=== PATIENT | female | born 1965 | race Caucasian/White ===

== ENCOUNTER 2022-03-10 06:17 | Observation (INO) ==
[~2022-03-10 06:17] MED LIST: Famotidine 20 MG/2 ML VIAL IVP ONE; Ringers Solution, Lactated 1,000 ML IVC ONE
[2022-03-10] MEDS ORDERED: Acetaminophen IV 1,000 MG/100 ML BAG IVPB ONE (06:30)
[2022-03-10] MEDS ORDERED: CeFAZolin Syr 2,000MG/20 ML 2,000 MG/20 ML SYRINGE IVPB ONE (06:46)
[2022-03-10] MEDS ORDERED: Ondansetron ODT 4 MG TAB.RAPDIS SL ONE (07:08)
[2022-03-10] MEDS ORDERED: Lidocaine/EPI 1:200k 1% PF 10 ML VIAL ONE (07:13)
[2022-03-10] MEDS ORDERED: Lidocaine/EPI 1:100k 1% 50 ML VIAL ONE (07:15)
[2022-03-10] MEDS ORDERED: Lidocaine -MPF 2% 5 ML VIAL ONE (07:20)
[2022-03-10] MEDS ORDERED: *HR* Succinylcholine 200 MG/10 ML VIAL IVP ONE (07:20)
[2022-03-10] MEDS ORDERED: Lidocaine HCL 4 ML Topical Solution (Laryng-O-Jet Kit Sterile Pak) TP ONE (07:20)
[2022-03-10] MEDS ORDERED: *HR* Rocuronium Bromide 50 MG/5 ML VIAL ONE (07:20)
[2022-03-10] MEDS ORDERED: *HR* FentaNYL (PF) 100 MCG/2 ML VIAL ONE (07:20)
[2022-03-10] MEDS ORDERED: Ondansetron 4 MG/2 ML VIAL ONE (07:20)
[2022-03-10] MEDS ORDERED: *HR* Propofol 200 MG/20 ML VIAL IVP ONE ×2 (07:21→10:20)
[2022-03-10] MEDS ORDERED: *HR* Midazolam HCl 2 MG/2 ML VIAL ONE (07:21)
[2022-03-10] MEDS ORDERED: *HR* Remifentanil 1 MG VIAL IVP ONE ×3 (07:24→09:53)
[2022-03-10] MEDS ORDERED: *HR* Phenylephrine 10 MG/ML VIAL ONE (07:29)
[2022-03-10] MEDS ORDERED: Naloxone 0.4 MG/ML INJ IVP PRN ×3 (08:07→12:10)
[2022-03-10] MEDS ORDERED: Ondansetron 4 MG/2 ML VIAL IVP PRN ×3 (08:07→12:10)
[2022-03-10] MEDS ORDERED: Albuterol 2.5 MG/3 ML NEBULIZER IH PRN (08:07)
[2022-03-10] MEDS ORDERED: Ketamine HCL *QUVA* 50mg (1mL) SYRINGE ONE (09:05)
[2022-03-10] MEDS ORDERED: *HR* OxyCODONE Immed Rel 5 MG TABLET PO PRN ×2 (11:00→12:10)
[2022-03-10] MEDS ORDERED: Acetaminophen 325 MG TABLET PO PRN (11:00)
[2022-03-10] MEDS: *HR* HYDROmorphone PF 0.5 MG/0.5 ML SYRINGE IVP PRN ×2 (11:04→11:23)
[2022-03-10] MEDS: 0.9 % Sodium Chloride 1,000 ML IVC SCH (12:46)
[2022-03-10] MEDS: Acetaminophen 325 MG TABLET PO PRN (13:51)
[2022-03-10] MEDS: CeFAZolin 2,000 MG/120 ML BAG IVPB SCH (14:47)
[2022-03-10] MEDS ORDERED: ceFAZolin 2,000 MG in 0.9 % Sodium Chloride 100 ML IVPB SCH (16:00)
[2022-03-10] MEDS: Clobetasol Propionate 0.05% 15 GM Cream Tube TP SCH (22:31)
[2022-03-11] MEDS: CeFAZolin 2,000 MG/120 ML BAG IVPB SCH (00:03)
[2022-03-11] MEDS: 0.9 % Sodium Chloride 1,000 ML IVC SCH ×3 (00:04→17:17)
[2022-03-11] MEDS: Acetaminophen 325 MG TABLET PO PRN ×3 (02:30→20:23)
[2022-03-11 09:22] LABS: Albumin 3.5 g/dL (3.5-5.7); Magnesium 1.6 mg/dL (1.6-2.6)
[2022-03-11] MEDS: calcitrioL 0.25 MCG CAPSULE PO SCH ×2 (09:24→20:22)
[2022-03-11] MEDS: Clobetasol Propionate 0.05% 15 GM Cream Tube TP SCH ×2 (09:24→20:24)
[2022-03-12] MEDS: 0.9 % Sodium Chloride 1,000 ML IVC SCH ×2 (05:18→14:54)
[2022-03-12] MEDS: Acetaminophen 325 MG TABLET PO PRN ×2 (06:09→20:48)
[2022-03-12] MEDS: calcitrioL 0.25 MCG CAPSULE PO SCH ×3 (07:53→20:48)
[2022-03-12] MEDS: Clobetasol Propionate 0.05% 15 GM Cream Tube TP SCH ×2 (08:05→21:11)
[2022-03-12] MEDS ORDERED: Calcium Gluconate 1gm/50mL 1 GM/50 ML BAG IVPB ONE ×2 (11:43→14:56)
[2022-03-12] MEDS: Cyanocobalamin (B-12) 1,000 MCG TABLET PO SCH (12:28)
[2022-03-12] MEDS: Cefuroxime PO 250 MG TABLET PO SCH (17:43)
[2022-03-13] MEDS: 0.9 % Sodium Chloride 1,000 ML IVC SCH ×2 (02:18→09:40)
[2022-03-13] MEDS: Cefuroxime PO 250 MG TABLET PO SCH (05:30)
[2022-03-13] MEDS: Acetaminophen 325 MG TABLET PO PRN (06:28)
[2022-03-13] MEDS: calcitrioL 0.25 MCG CAPSULE PO SCH (07:56)
[2022-03-13] MEDS: Cyanocobalamin (B-12) 1,000 MCG TABLET PO SCH (07:57)
[2022-03-13] MEDS: Clobetasol Propionate 0.05% 15 GM Cream Tube TP SCH (07:57)
[2022-03-13 11:22] VITALS: BP 156/75; PULSE 81; TEMP 98.4; O2SAT 96
== END 2022-03-13 17:27 | disposition home or self-care (01) ==
LOC: 3BNU 06:17 → SAMDAY 06:17 → 3BNU 12:04
PROVIDERS: ADMIT Otolaryngology; ATTEND Otolaryngology